=== PATIENT | male | born 1975 | race Caucasian/White ===

== ENCOUNTER 2023-08-14 13:36 | Emergency (ER) | payer OTHER, SELFPAY ==
--- NOTE | ~2023-08-14 | XR_ITS ---
EXAMINATION: [id number] DATE: 08/14/2023 14:13 INDICATION: Diffuse left knee pain post fall TECHNIQUE: AP and lateral views of the left knee were obtained COMPARISON: None. FINDINGS: Alignment is normal. No fracture. Tricompartmental osteoarthritis at the left knee which is at least moderate to severe in the medial compartment and mild at the lateral and patellofemoral compartments. Severity of joint space narrowing can however be underestimated on nonweightbearing imaging. Small l eft knee joint effusion without layering lipohemarthrosis. Soft tissues are otherwise unremarkable. IMPRESSION: 1. At least moderate to severe medial compartment predominant tricompartmental osteoarthritis at the left knee. No acute osseous abnormality. 2. Small left knee joint effusion. Reviewed, dictated and finalized at location A. T OF WAY MAINTENANCE SUPERVISOR
--- NOTE | ~2023-08-14 | XR_ITS ---
EXAMINATION: XR ankle LT min 3V DATE: 08/14/2023 15:41 INDICATION: Left ankle pain post fall TECHNIQUE: Anteroposterior, oblique, mortise, and lateral views of the left ankle were obtained. COMPARISON: None. FINDINGS: Alignment is normal. No fracture. Joint spaces are well maintained. No bursitis plantar calcaneal sp ur. No ankle joint effusion. The soft tissues are unremarkable. No ankle joint effusion. IMPRESSION: 1. No acute osseous abnormality. Reviewed, dictated and finalized at location A. REPORTER
--- NOTE | ~2023-08-14 | XR_ITS ---
EXAMINATION: XR foot LT 2V DATE: 08/14/2023 14:14 INDICATION: Diffuse left foot pain post fall TECHNIQUE: Dorsoplantar and lateral views of the left foot were obtained. COMPARISON: None. FINDINGS: Old fracture at the proximal metadiaphyseal region of the left fifth metatarsal which is healed with 10 degrees medial angulation. Alignment is otherwise normal. No acute fracture. Mild osteoarthritis a t the first metatarsophalangeal joint. Moderate-sized plantar calcaneal spur. Soft tissues are unrema rkable. No ankle joint effusion. IMPRESSION: 1. No acute osseous abnormality. Reviewed, dictated and finalized at location A. CONSERVATOR
[2023-08-14 13:50] VITALS: BP 140/96; PULSE 96; RESP 20; TEMP 36.1; O2SAT 100
--- NOTE | 2023-08-14 15:20 | ED.GENADULT ---
HPI - General Adult General Chief complaint: Extremity Injury, Lower <Smita Borjas October, Last Filed: 08/14/23 19:38> Stated complaint: slipped on ice- L leg pain <Smita Borjas October, - Last Filed: 08/14/23 19:38> Time Seen by Provider: 08/14/23 15:20 <Smita Borjas October, Last Filed: 08/14/23 19:38> Focused HPI: [address] Gilbert Sharp is a 48 y/o male who presents with reports of having a ground level fall today on to his left knee and he having pain to the top of his left foot / left ankle up to his left knee. Pedal pulses present ROM intact GENERAL: Well-appearing, well-nourished, and in no acute distress. HEAD: Normocephalic, atraumatic. CHEST: Clear to auscultation. ?No respiratory distress. HEART: Regular rate and rhythm.? NEURO: ?Alert and oriented x3. Patient screened in triage and initial orders placed.? ?Additional care and disposition to be based upon?diagnostic testing and treatment. <Smita Borjas October, Last Filed: 08/14/23 19:38> History of Present Illness HPI narrative: Focused HPI: 15[address] Gilbert Sharp is a 48 y/o male who presents with reports of having a ground level fall today on to his left knee and he having pain to the top of his left foot / left ankle up to his left knee. Pedal pulses present ROM intact GENERAL: Well-appearing, well-nourished, and in no acute distress. HEAD: Normocephalic, atraumatic. CHEST: Clear to auscultation. ?No respiratory distress. HEART: Regular rate and rhythm.? NEURO: ?Alert and oriented x3. Patient screened in triage and initial orders placed.? ?Additional care and disposition to be based upon?diagnostic testing and treatment. <Smita Borjas October, Last Filed: 08/14/23 19:38> Focused HPI: 15[address] Gilbert Sharp is a 48 y/o male who presents with reports of having a ground level fall today on to his left knee and he having pain to the top of his left foot / left ankle up to his left knee. Pedal pulses present ROM intact GENERAL: Well-appearing, well-nourished, and in no acute distress. HEAD: Normocephalic, atraumatic. CHEST: Clear to auscultation. ?No respiratory distress. HEART: Regular rate and rhythm.? NEURO: ?Alert and oriented x3. Patient screened in triage and initial orders placed.? ?Additional care and disposition to be based upon?diagnostic testing and treatment. 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 He felt a pop in his knee. No numbness or tingling. Has discomfort with flexion extension of his left knee. he did not strike his head or lose consciousness. <Jhon Ames MD - Last Filed: 08/14/23 19:13> Related Data Allergies/adverse reactions: Allergies Allergy/AdvReac Type Severity Reaction Status Date / Time Sulfa (Sulfonamide Allergy Hives Verified 08/14/23 16:01 Antibiotics) <Smita Liu WATER RECLAMATION SYSTEMS OPERATOR - Last Filed: 08/14/23 19:38> Review of Systems Constitutional: Constitutional: Reports no additional constitutional complaints <Jhon Ames MD - Last Filed: 08/14/23 19:13> Musculoskeletal: Musculoskeletal: Denies back pain, Reports arthralgias, Reports joint swelling and Denies muscle cramps <hJon Ames MD - Last Filed: 08/14/23 19:13> Integumentary/Breasts: Skin/Breast: Reports system reviewed and no additional complaints, except as docu <Jhon Ames MD - Last Filed: 08/14/23 19:13> Neurologic: Reports system reviewed and no additional complaints, except as documented <Jhon Ames MD - Last Filed: 08/14/23 19:13> PMFSH Surgical History Surgical History: Surgical History (Updated 08/14/23 @ 19:12 by Jhon Ames MD) H/O anterior cruciate ligament surgery <Smita Liu WATER RECLAMATION SYSTEMS OPERATOR - Last Filed: 08/14/23 19:38> Exam Narrative: GENERAL: Well-appearing, well-nourished, and in no acute distress. HEAD: Normocephalic, atraumatic. EXTREMITIES: left lower extremity with
[2023-08-14] MEDS: HYDROcodone/acetaminophen (*CRX) 5-325 MG TABLET 1 TAB PO (16:01)
[2023-08-14] MEDS: KETOROLAC 30 MG/ML VIAL (*BKC) IM (16:02)
[2023-08-14 17:10] VITALS: BP 136/76; PULSE 85; RESP 18; TEMP 36.4; O2SAT 98
== END 2023-08-14 17:10 | disposition home or self-care (01) ==
PROVIDERS: Emergency Provider Emergency Medicine; PCP Internal Medicine
DX: S83.92XA Sprain of unspecified site of left knee, initial encounter (principal); M17.12 Unilateral primary osteoarthritis, left knee; W00.0XXA Fall on same level due to ice and snow, initial encounter
CPT/HCPCS: 73560; 73610; 73620; 96372; 99284; A9270; J1885